=== PATIENT | male | born 1950 | race Caucasian/White ===

== ENCOUNTER 2018-12-14 19:40 | Emergency (ER) | payer OTHER ==
[~2018-12-14] VITALS: Ht 175.3 cm; Wt 81.6 kg
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
[2018-12-14] MEDS ORDERED: OLANZAPINE 10 MG VIAL IM ONE ×2 (21:00→21:09)
[2018-12-14 21:04] LABS: BASOPHILS % (AUTO) 0.4 % (0.0-2.0); EOSINOPHILS % (AUTO) 2.7 % (0.0-6.0); HEMATOCRIT 40 % (39-51); HEMOGLOBIN 13.7 g/dL (13.5-17.5); LYMPHOCYTES # (AUTO) 1.8 /CMM (0.8-4.8); LYMPHOCYTES % (AUTO) 35.2 % (20.0-44.0); MEAN CORPUSCULAR HGB CONC 34 g/dl (31.0-36.0); MEAN CORPUSCULAR VOLUME 95 fL (80-96); MONOCYTES # (AUTO) 0.8 /CMM (0.1-1.30); MONOCYTES % (AUTO) 14.4 % (2.0-12.0); NEUTROPHILS # (AUTO) 2.5 /CMM (1.8-8.9); NEUTROPHILS % (AUTO) 47.3 % (43.0-81.0); PLATELET COUNT (AUTO) 183 /CMM (150-450); WHITE BLOOD COUNT (AUTO) 5.2 K/uL (4.3-11.0)
[2018-12-14] MEDS ORDERED: LIDOCAINE 2% JEL UROJET 10 ML MM ONE ×2 (21:09→21:30)
[2018-12-14 21:11] LABS: CALCIUM, SERUM 8.7 mg/dL (8.5-10.1); CARBON DIOXIDE 29 mmol/L (21-32); CHLORIDE 104 mmol/L (98-107); CREATININE 1.2 mg/dL (0.6-1.3); GLUCOSE 100 mg/dL (74-106); POTASSIUM 3.9 mmol/L (3.5-5.1); SODIUM SERUM 140 mmol/L (136-145); UREA NITROGEN, BLOOD 21 mg/dL (7-18)
[2018-12-14 21:18] LABS: ACETAMINOPHEN 0 ug/ml (10-30); ALANINE AMINOTRANSFERASE 36 U/L (12-78); ALKALINE PHOSPHATASE 94 U/L (46-116); ASPARTATE AMINOTRANSFERASE 22 U/L (15-37); BILIRUBIN,DIRECT 0.1 mg/dL (0.0-0.2); BILIRUBIN,TOTAL 0.3 mg/dL (0.2-1.0); SALICYLATE 1.1 mg/dL (2.8-20.0); TOTAL PROTEIN, SERUM 7.3 g/dL (6.4-8.2)
[2018-12-14 21:19] LABS: ALCOHOL, BLOOD < 3 mg/dL (0-0)
--- NOTE | 2018-12-14 21:20 | NUR ---
PT TAKEN TO CT VIA [facility]
--- NOTE | 2018-12-14 21:34 | NUR ---
PT RETURNED FROM [facility]OLOG[facility] [employer]. PT TOLERATED WELL.
--- NOTE | 2018-12-14 22:32 | NUR ---
URINE COLLECTED AND SENT TO LAB
--- NOTE | 2018-12-14 22:46 | NUR ---
[facility] CALLED.
[2018-12-14 22:49] LABS: APPEARANCE,URINE Clear (CLEAR); BILIRUBIN,URINE Negative (NEGATIVE); BLOOD, URINE Small Ery/uL (NEGATIVE); COLOR,URINE Light yellow (YELLOW); KETONES,URINE Negative (NEGATIVE); LEUKOCYTE ESTERASE ,URINE Negative (NEGATIVE); NITRITE, URINE Negative (NEGATIVE); PROTEIN,URINE Negative (NEGATIVE); UGLUCOSE Negative (NEGATIVE); UROBILINOGEN,URINE 0.2 EU/dL (0.2)
[2018-12-14 22:57] LABS: BACTERIA,URINE Few /HPF (None Seen); SQUAMOUS EPITHELIAL CELL,UR Few /HPF (None Seen); WBC,URINE 0-2 /HPF (0-3)
[2018-12-14] MEDS ORDERED: LORAZEPAM INJ 2 MG/ML VIAL ONE (23:55)
[2018-12-15] MEDS ORDERED: LORAZEPAM INJ 2 MG/ML VIAL ONE (03:56)
[2018-12-15] MEDS ORDERED: OLANZAPINE 10 MG VIAL IM ONE ×2 (03:56→04:00)
[2018-12-15] MEDS ORDERED: LORAZEPAM INJ 2 MG/ML VIAL IM ONE ×2 (04:00)
--- NOTE | 2018-12-15 08:36 | NUR ---
PT SLEEPING SOUNDLY RESP EVEN UNLABORED VSS CONT TO MONITOR SITTER AT BEDSIDE
--- NOTE | 2018-12-15 08:41 | NUR ---
CALLED [facility] [phone] [facility] [phone] GUZMAN; PT NEEDS 1-TO-1 SO SHE IS LOOKING FOR [facility]. WILL CALL US SOON SHE FINDS A BED.
--- NOTE | 2018-12-15 09:00 | NUR ---
PT GIVEN BREAKFAST FELL BACK TO SLEEP VSS
--- NOTE | 2018-12-15 09:53 | NUR ---
, FAUSTINA ARZATE LEFT CONTACT INFO [phone]
--- NOTE | 2018-12-15 11:44 | NUR ---
TRANSFERRING TO [facility] ACCEPTING DR SCHMIDT. [phone]. BLS TRANSPORT 45MIN-1 HOUR.
--- NOTE | 2018-12-15 11:54 | NUR ---
called [facility] and spoke to linda GONZALEZ and report given.
[2018-12-15 12:44] VITALS: BP 119/81
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
== END 2018-12-15 12:45 | disposition short-term general hospital (02) ==
LOC: ER 19:42
DX: F91.9 Conduct disorder, unspecified (principal); F20.9 Schizophrenia, unspecified; F31.9 Bipolar disorder, unspecified; R40.4 Transient alteration of awareness; F03.91 Unspecified dementia, unspecified severity, with behavioral disturbance; Z88.0 Allergy status to penicillin
CPT/HCPCS: 36415; 51701; 70450; 80048; 80076; 80305; 80307; 80329; 81001; 85025; 96372 ×2; 99285; G0480; J2060; J3490 ×3; 81000-TC